=== PATIENT | male | born 1950 | race Caucasian/White ===

== ENCOUNTER 2021-06-13 13:08 | Emergency (ER) | payer OTHER ==
[~2021-06-13] VITALS: Ht 170.2 cm; Wt 93.0 kg
[2021-06-13] MEDS ORDERED: CARBAMAZEPINE100 M2 PO (13:33)
[2021-06-13] MEDS ORDERED: VASOTEC10 MG PO (13:34)
[2021-06-13] MEDS ORDERED: PROTONIX40 M2 PO (13:34)
[2021-06-13] MEDS ORDERED: LIPITOR40 MG PO (13:34)
[2021-06-13 14:24] LABS: ABSOLUTE NEUTROPHILS 6.3 thou/uL (1.4-8.2); BASOPHILS 0.4 % (0.0-2.0); EOSINOPHILS 0.5 % (0.0-3.0); HEMOGLOBIN 13.4 gm/dL (14.0-18.0); LYMPHOCYTES 7.4 % (24.0-44.0); MCH 30.4 pg (26.0-34.0); MCHC 33.4 g/dL (28.0-37.0); MCV 91.2 fL (80.0-100.0); MONOCYTES 6.2 % (1.0-8.0); PLATELET COUNT 134 thou/uL (150-400); POLYS 85.5 % (36.0-66.0); RBC 4.39 mil/uL (4.50-6.00); RDW 12.9 % (10.5-14.5); WBC 7.3 thou/uL (4.0-11.0)
[2021-06-13 14:34] LABS: CALCIUM 8.8 mg/dL (8.5-10.1)
[2021-06-13] MEDS ORDERED: MACROBID 100 M100 M1 PO (15:31)
[2021-06-13 16:14] VITALS: BP 172/89
== END 2021-06-13 16:15 | disposition home or self-care (01) ==
LOC: ER 13:08
PROVIDERS: Emergency Medicine
DX: R31.9 Hematuria, unspecified (principal); I10 Essential (primary) hypertension; Z90.89 Acquired absence of other organs; Z79.891 Long term (current) use of opiate analgesic; Z79.899 Other long term (current) drug therapy

== ENCOUNTER 2021-06-15 12:37 | Emergency (ER) | payer OTHER ==
[~2021-06-15] VITALS: Ht 170.2 cm; Wt 93.0 kg
[~2021-06-15 12:37] MED LIST: CARBAMAZEPINE100 M2 PO; LIPITOR40 MG PO; MACROBID 100 M100 M1 PO; PROTONIX40 M2 PO; VASOTEC10 MG PO
[2021-06-15 13:23] LABS: URINE BILIRUBIN NEGATIVE (Negative); URINE BLOOD 3+ (Negative); URINE CLARITY SL CLOUDY; URINE COLOR YELLOW; URINE GLUCOSE-RANDOM* NEGATIVE (Negative); URINE KETONES NEGATIVE (Negative); URINE LEUKOCYTES-REFLEX 1+ (Negative); URINE NITRITE-REFLEX NEGATIVE (Negative); URINE PROTEIN (DIPSTICK) TRACE (Negative); URINE SPECIFIC GRAVITY 1.015 (1.005-1.035); URINE UROBILINOGEN 0.2 E.U./dl (0.2-1.0)
[2021-06-15 13:35] LABS: CASTS None Seen /LPF (None Seen); SQUAMOUS 0-3 Few /LPF (0-3)
[2021-06-15 13:36] LABS: CRYSTALS None Seen /LPF (None Seen)
[2021-06-15 14:29] VITALS: BP 165/94
== END 2021-06-15 14:30 | disposition home or self-care (01) ==
LOC: ER 12:37
PROVIDERS: Emergency Medicine
DX: T83.038A Leakage of other urinary catheter, initial encounter (principal); N39.0 Urinary tract infection, site not specified; I10 Essential (primary) hypertension; Z90.89 Acquired absence of other organs; Z79.891 Long term (current) use of opiate analgesic; Z79.899 Other long term (current) drug therapy